=== PATIENT | female | born 2000 | race Two or more races ===

== ENCOUNTER 2022-08-17 21:26 | Emergency (ER) | payer OTHER ==
[~2022-08-17] VITALS: Ht 162.6 cm; Wt 54.4 kg
--- NOTE | 2022-08-17 21:55 | NUR ---
BIBFRIEND WITH CC OF FLU LIKE SYMTOMS. T 102.7, +BODY ACHES, NAUSEA, VOMITING X 2 TODAY. AAOX4, PLACED COMFORTABLY IN BED, VITALS CHECKED.
--- NOTE | 2022-08-17 22:02 | NUR ---
URINE COLLECTED AND SENT TO LAB
--- NOTE | 2022-08-17 22:10 | NUR ---
COVID SWAB AND STREP SWAB COLLECTED AND SENT TO LAB
[2022-08-17] MEDS ORDERED: ACETAMINOPHEN ES 500 MG TABLET ONE (22:16)
[2022-08-17] MEDS ORDERED: ACETAMINOPHEN ES 500 MG TABLET PO ONE (22:30)
[2022-08-17] MEDS ORDERED: ONDANSETRON HCL/PF 4 MG/2 ML VIAL ONE (22:41)
--- NOTE | 2022-08-17 22:45 | NUR ---
18GA TO [facility] ESTABLISHED FOR IVF AND IV MED
[2022-08-17] MEDS ORDERED: ONDANSETRON HCL/PF - ER 4 MG/2 ML VIAL IV ONE (23:00)
[2022-08-17] MEDS ORDERED: IV NS 0.9% 1,000 ML IV ONE (23:00)
--- NOTE | 2022-08-17 23:21 | NUR ---
TEMP NOW 100.7F
[2022-08-18] MEDS ORDERED: ONDA4TAB11 PO (00:38)
[2022-08-18 00:52] VITALS: BP 103/81
--- NOTE | 2022-08-18 00:52 | NUR ---
Patient discharged to home in stable condition. Written and verbal after care instructions given. Patient verbalizes understanding of instruction. IV removed. Catheter intact and site benign. Pressure and 4x4 applied to site. No bleeding noted.
== END 2022-08-18 00:53 | disposition home or self-care (01) ==
LOC: ER 21:45
DX: A08.4 Viral intestinal infection, unspecified (principal); R11.2 Nausea with vomiting, unspecified; Z20.822 Contact with and (suspected) exposure to COVID-19
CPT/HCPCS: 99285; 96374; 96361; 87426; 87804 ×2; J2405; J7030; C9803